=== PATIENT | female | born 1960 | race Caucasian/White ===

== ENCOUNTER 2016-12-18 12:43 | Inpatient (IN) | payer BC ==
[~2016-12-18] VITALS: Ht 157.5 cm; Wt 77.6 kg
[2016-12-18 13:31] LABS: HEMATOCRIT 43.4 % (36.0-46.0); MCH 31.4 PG (29.0-34.0); MCHC 34.6 G/DL (30.0-36.0); MCV 90.8 FL (83-99); MEAN PLAT.VOLUME 9.3 uM^3 (9.5-12.4); PLATELET COUNT 241 K/uL (156-360); RBC DIS.WIDTH-CV 11.3 % (11.8-14.6); RBC DIS.WIDTH-SD 37.8 % (39-53); RED BLOOD COUNT 4.78 M/uL (3.80-5.20); WHITE BLOOD COUNT 7.3 K/uL (4.1-10.2)
[2016-12-18] MEDS ORDERED: PROAIR HFA8.5 GM IH (13:33)
[2016-12-18] MEDS ORDERED: ATORVASTATIN CA10 MG PO (13:33)
[2016-12-18] MEDS ORDERED: ESCITALOPRAM OX10 MG PO (13:33)
[2016-12-18] MEDS ORDERED: MONTELUKAST SOD10 MG PO (13:34)
[2016-12-18 13:44] LABS: CHLORIDE 100 mEq/L (99-109); SODIUM 138 mEq/L (136-147)
[2016-12-18 13:45] LABS: MAGNESIUM 2.2 mg/dL (1.3-2.7)
[2016-12-18 13:46] LABS: GLUCOSE 390 mg/dL (70-99)
[2016-12-18 13:47] LABS: ANION GAP 13 MEQ/L (2-14)
[2016-12-18 13:50] LABS: UREA NITROGEN (BUN) 20 mg/dL (9-23)
[2016-12-18 13:52] LABS: GFR ESTIMATE (CALCULATED) 55 mL/min/
[2016-12-18] MEDS ORDERED: 24HOUR ALLERGY10 MG PO (15:31)
[2016-12-18] MEDS ORDERED: VITAMIN D-32000 UNI2 PO (15:31)
[2016-12-18] MEDS ORDERED: DELTASONE20 M1 PO (15:32)
[2016-12-18] MEDS ORDERED: [UNRECOGNIZED DRUG - OTHER] TP (15:33)
[2016-12-18] MEDS ORDERED: TUSSIN DM LIQU118 ML PO (15:33)
[2016-12-18] MEDS ORDERED: TESSALON PERLE100 MG PO (15:33)
[2016-12-18 15:37] LABS: Estimated Average Glucose 174 mg/dL (70-123); HEMOGLOBIN A1c (GLYCOHEMOGLOB) 7.7 % HGB (Below 5.7)
[2016-12-18 16:03] LABS: POINT-OF-CARE METER ID UU13113747
[2016-12-18 20:20] VITALS: BP 133/64
[2016-12-18 23:17] LABS: POINT-OF-CARE METER ID UU13113807
[2016-12-18 23:38] VITALS: BP 121/65
[2016-12-19 03:54] VITALS: BP 113/62
[2016-12-19 08:17] VITALS: BP 117/63
[2016-12-19 09:14] LABS: POINT-OF-CARE METER ID UU13113807
[2016-12-19 11:57] VITALS: BP 117/70
[2016-12-19 12:20] LABS: POINT-OF-CARE METER ID UU13113807
[2016-12-19 17:19] LABS: POINT-OF-CARE METER ID UU13113807
[2016-12-19 19:45] VITALS: BP 113/67
[2016-12-19 22:02] LABS: POINT-OF-CARE METER ID UU13113807
[2016-12-19 23:51] VITALS: BP 130/73
[2016-12-20 05:49] LABS: MCH 31.1 PG (29.0-34.0); MCHC 33.8 G/DL (30.0-36.0); MCV 91.9 FL (83-99); MEAN PLAT.VOLUME 9.1 uM^3 (9.5-12.4); PLATELET COUNT 251 K/uL (156-360); RBC DIS.WIDTH-CV 11.4 % (11.8-14.6); RBC DIS.WIDTH-SD 38.6 % (39-53); RED BLOOD COUNT 4.57 M/uL (3.80-5.20); WHITE BLOOD COUNT 11.3 K/uL (4.1-10.2)
[2016-12-20 06:12] LABS: ANION GAP 11 MEQ/L (2-14); CHLORIDE 100 MEQ/L (99-109); GFR ESTIMATE (CALCULATED) > 59 mL/min/; GLUCOSE 283 mg/dL (70-99); POTASSIUM 3.9 MEQ/L (3.7-5.4); SAMPLE HEMOLYSIS CHECK 0; SAMPLE ICTERIC CHECK 0; SAMPLE LIPEMIA CHECK 0; SODIUM 138 MEQ/L (136-147); UREA NITROGEN (BUN) 18 mg/dL (9-23)
[2016-12-20 08:20] VITALS: BP 118/66
[2016-12-20 09:05] LABS: POINT-OF-CARE METER ID UU13113807
[2016-12-20 12:26] LABS: POINT-OF-CARE METER ID UU13113807
[2016-12-20] MEDS ORDERED: ADVAIR HFA120 INHALA IH (14:05)
[2016-12-20] MEDS ORDERED: CEFDINIR300 MG PO (14:05)
[2016-12-20] MEDS ORDERED: PREDNISONE20 MG PO (14:05)
[2016-12-20] MEDS ORDERED: PROAIR HFA8.5 GM IH (14:05)
[2016-12-20] MEDS ORDERED: ALBUTEROL2.5 MG/0.5 AEROSOL (14:05)
[2016-12-20] MEDS ORDERED: METFORMIN HCL1000 MG PO (14:05)
[2016-12-21 12:38] LABS: POINT-OF-CARE METER ID UU13113807
== END 2016-12-20 15:40 | disposition home or self-care (01) | DRG 191 ==
LOC: EME 12:43 → EDOF 15:19 → 4SOUTH 19:41
PROVIDERS: Internal Medicine; Physician Assistant
DX: J44.1 Chronic obstructive pulmonary disease with (acute) exacerbation (principal); E11.65 Type 2 diabetes mellitus with hyperglycemia; J44.0 Chronic obstructive pulmonary disease with (acute) lower respiratory infection; J45.901 Unspecified asthma with (acute) exacerbation; F17.210 Nicotine dependence, cigarettes, uncomplicated; R09.02 Hypoxemia; Z79.84 Long term (current) use of oral hypoglycemic drugs; Z82.49 Family history of ischemic heart disease and other diseases of the circulatory system; Z83.3 Family history of diabetes mellitus; J20.9 Acute bronchitis, unspecified
CPT/HCPCS: 71010; 71020; 80048; 82948; 83036; 83735; 85027; 94640; 94640 76; 94799; 99281; 99285; J1650; J1815; J2920; J2930; J7030; J7120; J7512